=== PATIENT | male | born 1975 ===

== ENCOUNTER → 2018-04-09 | Outpatient (CLI) | payer OTHER ==
[~2018-04-09] MED LIST: NABUMETONE500 MG PO; PERCOCET 5/3251 TAB PO
== END | disposition home or self-care (01) ==
LOC: WOUND MED 08:59 → EDSTATUS 11:17
DX: E10.621 Type 1 diabetes mellitus with foot ulcer (principal); L97.522 Non-pressure chronic ulcer of other part of left foot with fat layer exposed
CPT/HCPCS: 11042; A4554; A4930; A6216; A6219; G0463

== ENCOUNTER → 2018-04-16 | Outpatient (CLI) | payer OTHER | END | disposition home or self-care (01) | LOC: WOUND MED 08:26 | DX: E10.621 Type 1 diabetes mellitus with foot ulcer (principal); L97.522 Non-pressure chronic ulcer of other part of left foot with fat layer exposed | CPT/HCPCS: 11042; A4554; A4930; A6216; A6219 ==

== ENCOUNTER → 2018-04-23 | Outpatient (CLI) | payer OTHER | END | disposition home or self-care (01) | LOC: WOUND MED 07:09 | DX: E10.621 Type 1 diabetes mellitus with foot ulcer (principal); L97.522 Non-pressure chronic ulcer of other part of left foot with fat layer exposed | CPT/HCPCS: 11042; A4554; A4930; A6216; A6219 ==

== ENCOUNTER → 2018-04-30 | Outpatient (CLI) | payer OTHER | END | disposition home or self-care (01) | LOC: WOUND MED 09:18 | DX: E10.621 Type 1 diabetes mellitus with foot ulcer (principal); L97.522 Non-pressure chronic ulcer of other part of left foot with fat layer exposed | CPT/HCPCS: 11042; A4554; A4930; A6216; A6219 ==

== ENCOUNTER → 2018-05-07 | Outpatient (CLI) | payer OTHER | END | disposition home or self-care (01) | LOC: WOUND MED 08:28 | DX: E10.621 Type 1 diabetes mellitus with foot ulcer (principal); L97.522 Non-pressure chronic ulcer of other part of left foot with fat layer exposed | CPT/HCPCS: 11042; A4554; A4930; A6216; A6219 ==

== ENCOUNTER → 2018-05-14 | Outpatient (CLI) | payer OTHER | END | disposition home or self-care (01) | LOC: WOUND MED 08:11 | DX: E10.621 Type 1 diabetes mellitus with foot ulcer (principal); L97.522 Non-pressure chronic ulcer of other part of left foot with fat layer exposed | CPT/HCPCS: 11042; A4554; A4930; A6212; A6216; A6219 ==

== ENCOUNTER → 2018-05-21 | Outpatient (CLI) | payer OTHER | END | disposition home or self-care (01) | LOC: WOUND MED 08:07 | DX: E10.621 Type 1 diabetes mellitus with foot ulcer (principal); L97.522 Non-pressure chronic ulcer of other part of left foot with fat layer exposed | CPT/HCPCS: G0463; A4554; A4930; A6216 ==

== ENCOUNTER → 2018-09-07 | Outpatient (CLI) | payer OTHER | END | disposition home or self-care (01) | LOC: WOUND MED 08:00 → WOUND CARE 08:11 → EDSTATUS 09-21 07:00 → WOUND CARE 09-21 08:00 → WOUND MED 09-28 08:00 → WOUND CARE 09-28 08:00 | DX: E10.621 Type 1 diabetes mellitus with foot ulcer (principal); L97.512 Non-pressure chronic ulcer of other part of right foot with fat layer exposed | CPT/HCPCS: G0463; A4554; A4930; A6216; A6219; A6266 ==

== ENCOUNTER → 2018-09-14 | Outpatient (CLI) | payer OTHER | END | disposition home or self-care (01) | LOC: WOUND MED 07:19 | DX: E10.621 Type 1 diabetes mellitus with foot ulcer (principal); L97.512 Non-pressure chronic ulcer of other part of right foot with fat layer exposed | CPT/HCPCS: G0463; A4554; A4930; A6216 ==

== ENCOUNTER → 2018-09-21 | Outpatient (CLI) | payer OTHER | END | disposition home or self-care (01) | LOC: WOUND MED 08:00 | DX: E10.621 Type 1 diabetes mellitus with foot ulcer (principal); L97.512 Non-pressure chronic ulcer of other part of right foot with fat layer exposed | CPT/HCPCS: 11042; A4554; A4930; A6216; A6220; A6266 ==

== ENCOUNTER → 2018-09-28 | Outpatient (CLI) | payer OTHER | END | disposition home or self-care (01) | LOC: WOUND MED 09:00 | DX: E10.621 Type 1 diabetes mellitus with foot ulcer (principal); L97.512 Non-pressure chronic ulcer of other part of right foot with fat layer exposed | CPT/HCPCS: 11042; A4554; A4930; A6216; A6219 ==

== ENCOUNTER → 2018-10-05 | Outpatient (CLI) | payer OTHER | END | disposition home or self-care (01) | LOC: WOUND MED 07:30 | DX: E10.621 Type 1 diabetes mellitus with foot ulcer (principal); L97.512 Non-pressure chronic ulcer of other part of right foot with fat layer exposed | CPT/HCPCS: 11042; A4554; A4930; A6196; A6216; A6219 ==

== ENCOUNTER → 2018-10-12 | Outpatient (CLI) | payer OTHER | END | disposition home or self-care (01) | LOC: WOUND MED 08:30 | DX: E10.621 Type 1 diabetes mellitus with foot ulcer (principal); L97.512 Non-pressure chronic ulcer of other part of right foot with fat layer exposed | CPT/HCPCS: 11042; A4554; A4930; A6216; A6220; A6266 ==

== ENCOUNTER → 2018-10-19 | Outpatient (CLI) | payer OTHER | END | disposition home or self-care (01) | LOC: WOUND MED 08:44 | DX: E10.621 Type 1 diabetes mellitus with foot ulcer (principal); L97.512 Non-pressure chronic ulcer of other part of right foot with fat layer exposed | CPT/HCPCS: 11042; A4554; A4930; A6216; A6219; A6266 ==

== ENCOUNTER → 2018-10-26 | Outpatient (CLI) | payer OTHER ==
[~2018-10-26] MED LIST changes: +CARVEDILOL25 MG; +HUMALOG100 UNIT/1; +NEURONTIN300 MG; +NORVASC5 MG; +SEVELAMER CARB800 MG PO; +[UNRECOGNIZED DRUG - OTHER]
== END | disposition home or self-care (01) ==
LOC: WOUND MED 09:25
DX: E10.621 Type 1 diabetes mellitus with foot ulcer (principal); L97.512 Non-pressure chronic ulcer of other part of right foot with fat layer exposed
CPT/HCPCS: 11044; A4554; A4930; A6216; A6220

== ENCOUNTER → 2018-11-02 | Outpatient (CLI) | payer OTHER | END | disposition home or self-care (01) | LOC: WOUND MED 09:41 | DX: E10.621 Type 1 diabetes mellitus with foot ulcer (principal); L97.512 Non-pressure chronic ulcer of other part of right foot with fat layer exposed | CPT/HCPCS: 11044; A4554; A4930; A6216; A6219; A6242 ==

== ENCOUNTER 2018-11-06 09:41 | Inpatient (IN) | payer OTHER ==
[~2018-11-06] VITALS: Ht 175.3 cm; Wt 99.8 kg
[~2018-11-06 09:41] MED LIST changes: -CARVEDILOL25 MG; -HUMALOG100 UNIT/1; -NEURONTIN300 MG; -NORVASC5 MG; -SEVELAMER CARB800 MG PO; -[UNRECOGNIZED DRUG - OTHER]
[2018-11-06] MEDS ORDERED: NORVASC5 MG (09:48)
[2018-11-06] MEDS ORDERED: CARVEDILOL25 MG (09:48)
[2018-11-06] MEDS ORDERED: [UNRECOGNIZED DRUG - OTHER] (09:48)
[2018-11-06] MEDS ORDERED: NEURONTIN300 MG (09:48)
[2018-11-06] MEDS ORDERED: HUMALOG100 UNIT/1 (09:49)
[2018-11-09] MEDS ORDERED: SEVELAMER CARB800 MG PO (14:34)
== END 2018-11-14 13:49 | disposition home or self-care (01) | DRG 503 ==
LOC: ER 09:41 → SEC-K 12:27 → MEDJ 12:27
PROVIDERS: Specialist; ADMIT Internal Medicine
PROC: 5A1D70Z Performance of Urinary Filtration, Intermittent, Less than 6 Hours Per Day (ICD-10-PCS; 2018-11-06)
PROC: 4A033R1 Measurement of Arterial Saturation, Peripheral, Percutaneous Approach (ICD-10-PCS; 2018-11-06)
PROC: BL31ZZZ Magnetic Resonance Imaging (MRI) of Lower Extremity Connective Tissue (ICD-10-PCS; 2018-11-07)
PROC: 8E0ZXY6 Isolation (ICD-10-PCS; 2018-11-07)
PROC: 0Y6P0Z0 Detachment at Right 1st Toe, Complete, Open Approach (ICD-10-PCS; principal; 2018-11-09 07:00)
DX: M86.171 Other acute osteomyelitis, right ankle and foot (principal); N18.6 End stage renal disease; I12.0 Hypertensive chronic kidney disease with stage 5 chronic kidney disease or end stage renal disease; N17.8 Other acute kidney failure; E11.52 Type 2 diabetes mellitus with diabetic peripheral angiopathy with gangrene; I96 Gangrene, not elsewhere classified; E11.621 Type 2 diabetes mellitus with foot ulcer; L97.514 Non-pressure chronic ulcer of other part of right foot with necrosis of bone; E11.22 Type 2 diabetes mellitus with diabetic chronic kidney disease; E11.65 Type 2 diabetes mellitus with hyperglycemia; I70.291 Other atherosclerosis of native arteries of extremities, right leg; B95.61 Methicillin susceptible Staphylococcus aureus infection as the cause of diseases classified elsewhere; B96.5 Pseudomonas (aeruginosa) (mallei) (pseudomallei) as the cause of diseases classified elsewhere; Z79.4 Long term (current) use of insulin; Z99.2 Dependence on renal dialysis
CPT/HCPCS: 73221

== ENCOUNTER → 2018-11-16 | Outpatient (CLI) | payer OTHER ==
[~2018-11-16] MED LIST changes: +CARVEDILOL25 MG; +HUMALOG100 UNIT/1; +NEURONTIN300 MG; +NORVASC5 MG; +SEVELAMER CARB800 MG PO; +[UNRECOGNIZED DRUG - OTHER]
== END | disposition home or self-care (01) ==
LOC: WOUND MED 10:41
DX: E10.621 Type 1 diabetes mellitus with foot ulcer (principal); L97.512 Non-pressure chronic ulcer of other part of right foot with fat layer exposed
CPT/HCPCS: 11042; A4554; A4930; A6216; A6219

== ENCOUNTER → 2018-11-23 | Outpatient (CLI) | payer OTHER | END | disposition home or self-care (01) | LOC: WOUND MED 09:14 | DX: E10.621 Type 1 diabetes mellitus with foot ulcer (principal); L97.512 Non-pressure chronic ulcer of other part of right foot with fat layer exposed | CPT/HCPCS: 11042; A4554; A4930; A6216; A6220 ==

== ENCOUNTER → 2018-11-26 | Outpatient (CLI) | payer OTHER | END | disposition home or self-care (01) | LOC: WOUND MED 09:54 | DX: E10.621 Type 1 diabetes mellitus with foot ulcer (principal); L97.512 Non-pressure chronic ulcer of other part of right foot with fat layer exposed | CPT/HCPCS: 97602; A4554; A4930; A6216; A6266 ==

== ENCOUNTER → 2018-11-30 | Outpatient (CLI) | payer OTHER | END | disposition home or self-care (01) | LOC: WOUND MED 08:52 | DX: E10.621 Type 1 diabetes mellitus with foot ulcer (principal); L97.512 Non-pressure chronic ulcer of other part of right foot with fat layer exposed | CPT/HCPCS: 11042; A4554; A4930; A6216; A6266 ==

== ENCOUNTER → 2018-12-03 | Outpatient (CLI) | payer OTHER | END | disposition home or self-care (01) | LOC: WOUND MED 09:38 | DX: E10.621 Type 1 diabetes mellitus with foot ulcer (principal); L97.512 Non-pressure chronic ulcer of other part of right foot with fat layer exposed | CPT/HCPCS: 97602; A4554; A4930; A6216; A6266 ==

== ENCOUNTER 2018-12-07 10:26 | Outpatient (CLI) | payer OTHER | END 2018-12-07 11:30 | disposition home or self-care (01) | LOC: WOUND MED 10:26 | DX: E10.621 Type 1 diabetes mellitus with foot ulcer (principal); L97.512 Non-pressure chronic ulcer of other part of right foot with fat layer exposed | CPT/HCPCS: 11042; A4554; A4930; A6216; A6266 ==

== ENCOUNTER 2018-12-10 11:06 | Outpatient (CLI) | payer OTHER | END 2018-12-10 11:30 | disposition home or self-care (01) | LOC: WOUND MED 11:06 | DX: E10.621 Type 1 diabetes mellitus with foot ulcer (principal); L97.512 Non-pressure chronic ulcer of other part of right foot with fat layer exposed | CPT/HCPCS: 97602; A4554; A4930; A6216; A6266 ==

== ENCOUNTER 2018-12-14 08:50 | Outpatient (CLI) | payer OTHER | END 2018-12-14 10:30 | disposition home or self-care (01) | LOC: WOUND MED 08:50 | DX: E10.621 Type 1 diabetes mellitus with foot ulcer (principal); L97.512 Non-pressure chronic ulcer of other part of right foot with fat layer exposed | CPT/HCPCS: 11042; A4554; A4930; A6021; A6216; A6219 ==

== ENCOUNTER 2018-12-17 09:14 | Outpatient (CLI) | payer OTHER | END 2018-12-17 10:30 | disposition home or self-care (01) | LOC: WOUND MED 09:14 | DX: E10.621 Type 1 diabetes mellitus with foot ulcer (principal); L97.512 Non-pressure chronic ulcer of other part of right foot with fat layer exposed | CPT/HCPCS: 97602; A4554; A4930; A6196; A6216; A6219 ==

== ENCOUNTER 2019-01-04 09:20 | Outpatient (CLI) | payer OTHER | END 2019-01-04 11:30 | disposition home or self-care (01) | LOC: WOUND MED 09:20 | DX: E10.621 Type 1 diabetes mellitus with foot ulcer (principal); L97.512 Non-pressure chronic ulcer of other part of right foot with fat layer exposed | CPT/HCPCS: 11042; A4554; A4930; A6216; A6219 ==

== ENCOUNTER 2019-01-21 08:31 | Outpatient (CLI) | payer OTHER | END 2019-01-21 10:30 | disposition home or self-care (01) | LOC: WOUND MED 08:31 | DX: E10.621 Type 1 diabetes mellitus with foot ulcer (principal); L97.512 Non-pressure chronic ulcer of other part of right foot with fat layer exposed | CPT/HCPCS: 11042; A4554; A4930; A6216; A6220; A6266 ==

== ENCOUNTER 2019-01-25 08:25 | Outpatient (CLI) | payer OTHER | END 2019-01-25 10:00 | disposition home or self-care (01) | LOC: WOUND MED 08:25 | DX: E10.622 Type 1 diabetes mellitus with other skin ulcer (principal); L97.512 Non-pressure chronic ulcer of other part of right foot with fat layer exposed | CPT/HCPCS: 97602; A4554; A4930; A6216; A6219; A6266 ==

== ENCOUNTER 2019-01-28 08:59 | Outpatient (CLI) | payer OTHER | END 2019-01-28 10:30 | disposition home or self-care (01) | LOC: WOUND MED 08:59 | DX: E10.621 Type 1 diabetes mellitus with foot ulcer (principal); L97.512 Non-pressure chronic ulcer of other part of right foot with fat layer exposed | CPT/HCPCS: 11042; A4554; A4930; A6216; A6219 ==

== ENCOUNTER 2019-02-04 09:20 | Outpatient (CLI) | payer OTHER | END 2019-02-04 10:30 | disposition home or self-care (01) | LOC: WOUND MED 09:20 | DX: E10.621 Type 1 diabetes mellitus with foot ulcer (principal); L97.512 Non-pressure chronic ulcer of other part of right foot with fat layer exposed | CPT/HCPCS: 11042; A4554; A4930; A6216; A6219 ==

== ENCOUNTER 2019-02-08 08:34 | Outpatient (CLI) | payer OTHER | END 2019-02-08 09:30 | disposition home or self-care (01) | LOC: WOUND MED 08:34 | DX: E10.621 Type 1 diabetes mellitus with foot ulcer (principal); L97.512 Non-pressure chronic ulcer of other part of right foot with fat layer exposed | CPT/HCPCS: 97602; A4554; A4930; A6216; A6219; A6266 ==